=== PATIENT | male | born 1945 | race Caucasian/White ===

== ENCOUNTER → 2019-06-02 | Outpatient (CLI) | payer MEDICARE, OTHER ==
[~2019-06-02] MED LIST: AMLO5TAB9 PO
--- NOTE | 2019-06-02 12:53 | Diagnostic Imaging Report ---
INDICATION: Left lower lobe cavitary lung mass. TECHNIQUE: Serum blood glucose level at the time of injection is 90 mg/dL. Patient was administered 13.3 mCi of F-18 FDG intravenously in the right antecubital location and PET imaging was performed from the top of the skull to mid thighs. Noncontrast CT was also performed for attenuation correction and anatomic correlation. COMPARISON: No prior PET studies are available for comparison. No recent CT chest is available for comparison. Comparison is made with a prior CT chest from 02/19/2016. FINDINGS: There is symmetric activity within the brain. There is some muscular uptake within the neck which is physiologic. There is some very mild uptake involving a left axillary lymph node with SUV max of approximately 3.2. This is indeterminate. This lymph node does not appear to be pathologically enlarged. No mediastinal or hilar hypermetabolism is seen. The cavitary lesion in the superior segment of the left lower lobe does not demonstrate FDG avidity. No other pulmonary parenchymal areas of hypermetabolism are identified. Abdomen and pelvis demonstrate physiologic activity throughout the GI and tracts. No suspicious hypermetabolism is identified. IMPRESSION: 1. Cavitary left lower lobe pulmonary mass does not demonstrate FDG uptake. Continued close follow-up is recommended. There does appear to be very mild uptake involving a left axillary lymph node, indeterminate. Dictated by: Dictated on workstation # [id number]
== END ==
LOC: RAD 07:37
PROVIDERS: ATTEND Nurse Practitioner Family
DX: J44.0 Chronic obstructive pulmonary disease with (acute) lower respiratory infection (principal); J30.9 Allergic rhinitis, unspecified; R91.8 Other nonspecific abnormal finding of lung field

== ENCOUNTER → 2020-01-25 | Outpatient (CLI) | payer MEDICARE, OTHER ==
[~2020-01-25] MED LIST changes: +CATHETER FLUSH 10 ML SYR IV PRN; +HOLD METFORMIN - RECEIVED CONTRAST 20 ML VIAL IV SCH; +IOHEXOL 350 MG/ML 100 ML (OMNIPAQUE 350) VIAL IV ONE; +NS 100 ML (IVPB) BAG IV ONE
[2020-01-25 09:25] LABS: BUN/CREATININE RATIO 11; CREATININE SERUM 1.03 MG/DL (0.60-1.30); GFR ESTIMATED > 60
--- NOTE | 2020-01-25 14:50 | Diagnostic Imaging Report ---
PROCEDURE: CT chest with contrast only. TECHNIQUE: Multiple contiguous axial images were obtained through the chest after administration of intravenous contrast. Auto Exposure Controls were utilized during the CT exam to meet ALARA standards for radiation dose reduction. DATE: January 25, 2020. COMPARISON: CT chest February 19, 2016. PET/CT June 02, 2019. INDICATION: 74-year-old male, cough, dyspnea. FINDINGS: In the left lower lobe on axial image 78, there is a cavitary lesion with somewhat irregular and mildly thick calvin which measures 2.3 x 1.9 cm in axial extent. This is a new finding since the February 19, 2016 CT chest. On the prior PET/CT of June 02, 2019, this previously measured approximately 2.4 x 1.8 cm in size. Although the size of the lesion is essentially unchanged since June 02, 2019, the wall thickness and a focal area of nodularity on current axial image 77 are new findings since June 02, 2019. This is concerning for potential neoplasm. There are findings of centrilobular emphysema. There is no additional pulmonary nodule. There is no additional focal airspace consolidation. There is no pneumothorax. There is no pleural effusion. There is nonspecific opacification of proximal left lower lobe bronchi, best illustrated on axial image 91 and adjacent sequential images. There are coronary artery calcifications and additional areas of atherosclerotic disease. The heart is not enlarged. There is no pericardial effusion. The main pulmonary artery diameter is within normal limits. There is no identified pulmonary embolus. There is no identified abnormally enlarged mediastinal or axillary lymph node which meets CT size criteria for adenopathy. There is a right hilar lymph node on axial image 72 which measures 11 mm in short axis. There is no identified abnormally enlarged left hilar lymph node. There are subcentimeter short axis bilateral axillary lymph nodes. There is a 6 mm low-attenuation lesion in the left lobe of the liver on axial image 131 which is too small to characterize. There is a 4 mm low-attenuation left renal lesion on axial image 151 which is too small to characterize. There are multilevel degenerative changes of the spine. There is no identified acute bony abnormality. There is no identified bone lesion raising suspicion for bone metastasis. IMPRESSION: 1. Cavitary nodule in the left lower lobe which is new since January 2016. The size is similar to June 02, 2019; however, there is increased wall thickness of the lesion and a nodular focus which are new since June 02, 2019. This does raise concern for potential malignancy. CT-guided biopsy is recommended. 2. Right hilar lymph node measuring 11 mm in short axis which is indeterminate. 3. Nonspecific opacification of proximal left lower lobe bronchi. 4. Findings of centrilobular emphysema. Dictated by: Dictated on workstation # [id number]
== END ==
LOC: RAD 08:44
PROVIDERS: ATTEND Nurse Practitioner Family
DX: J30.9 Allergic rhinitis, unspecified (principal); J43.2 Centrilobular emphysema; R91.8 Other nonspecific abnormal finding of lung field
CPT/HCPCS: 36415; 71260; 82565; 84520

== ENCOUNTER 2020-02-08 07:25 | Outpatient (CLI) | payer MEDICARE, OTHER ==
[2020-02-08] VITALS (15 sets, daily range): BP systolic 116–170; BP diastolic 52–82
[~2020-02-08] VITALS: Ht 175.3 cm; Wt 56.8 kg
[~2020-02-08 07:25] MED LIST changes: -CATHETER FLUSH 10 ML SYR IV PRN; -HOLD METFORMIN - RECEIVED CONTRAST 20 ML VIAL IV SCH; -IOHEXOL 350 MG/ML 100 ML (OMNIPAQUE 350) VIAL IV ONE; -NS 100 ML (IVPB) BAG IV ONE
[2020-02-08 07:56] LABS: HEMOGLOBIN 14.3 G/DL (13.3-17.7); MEAN PLATELET VOLUME 9.6 FL (7.4-10.4); RED CELL DISTRIBUTION WIDTH 13.7 % (10.0-14.5)
[2020-02-08] MEDS ORDERED: NS IV 1000 ML 1,000 ML IV STA (07:58)
[2020-02-08] MEDS ORDERED: LIDOCAINE 1% INJ 20 ML 20 ML VIAL INJ ONE (08:00)
[2020-02-08] MEDS ORDERED: MIDAZOLAM 2 MG/2 ML (VERSED) VIAL IVP ONE (08:00)
[2020-02-08] MEDS ORDERED: fentaNYL INJECTION 100 MCG/2 ML AMP IVP ONE (08:00)
[2020-02-08 08:18] LABS: INR 0.9 (0.8-1.4); PROTHROMBIN TIME PATIENT 12.6 SEC (12.2-14.7)
[2020-02-08] MEDS ORDERED: FLUT1DIS26 IH (08:40)
[2020-02-08] MEDS ORDERED: LISI10TA2 PO (08:40)
[2020-02-08] MEDS ORDERED: HYDROcodone/APAP 5 MG/325 MG (LORTAB) TAB PO PRN (10:15)
--- NOTE | 2020-02-08 10:16 | Pre-Op Note & Conscious Sedat ---
Pre-Operative Progress Note H&P Reviewed The H&P was reviewed, patient examined and no changes noted. Date H&P Reviewed: Feb 08, 2020 Time H&P Reviewed: 08:00 Pre-Op Diagnosis: Left lung mass Conscious Sedation Pre-Proced Time 08:00 ASA Score 2 For ASA 3 and 4: Consider anesthesia and medical clearance. Also, for patients with a history of failed moderate sedation consider anesthesia. Airway Lungs Heart ASA score ASA 1: a normal healthy patient ASA 2: a patient with a mild systemic disease (mid diabetes, controlled hypertension, obesity ASA 3: a patient with a severe systemic disease that limits activity (angina, COPD, prior Myocardial infarction) ASA 4: a patient with an incapacitating disease that is a constant threat to life (CHF, renal failure) ASA 5: a moribund patient not expected to survive 24 hrs. (ruptured aneurysm) ASA 6: a declared brain- patient whose organs are being harvested. For emergent operations, add the letter E after the classification Mallampati Classification Grade 2 Sedation Plan Analgesia, Amnesia, Plan communicated to team members, Discussed options with patient/fam, Discussed risks with patient/fam The patient is an appropriate candidate to undergo the planned procedure, sedation, and anesthesia. The patient immediately re-assessed prior to indication. NAKIA PUGA MD Feb 08, 2020 10:16
--- NOTE | 2020-02-08 10:32 | Diagnostic Imaging Report ---
INDICATION: Left lower lobe cavitary lung mass. Patient presents for CT-guided biopsy. TECHNIQUE: All CT scans use one or more of the following dose optimizing techniques: automated exposure control, MA and/or KvP adjustment based on a patient size and exam type, or iterative reconstruction. After informed written consent was obtained from the patient, patient brought to the CT suite, placed on table in the left side down decubitus position. Axial imaging through the chest was performed to evaluate appropriate entry site. Study was performed utilizing conscious sedation with radiology nursing and constant patient monitoring. Patient was administered total of 25 mcg of fentanyl intravenously and 1 mg of Versed intravenously. Total procedure time approximately 16 minutes. A left posterior thorax was prepped and draped in usual sterile fashion. Small amount of 1% lidocaine was utilized for local anesthesia. 20-gauge coaxial Temno needle was advanced from a posterior approach and placed with its tip along the margin of the cavitary lesion left lower lobe. The tip was placed in the area of thickening and nodularity of the lesion. Three core biopsies were then obtained. The needle was removed during injection of a blood patch. Followup imaging shows no complicating features. No pneumothorax is identified. Patient tolerated the procedure well and left the department in stable condition. IMPRESSION: CT-guided core biopsy of left lower lobe cavitary lung mass, utilizing conscious sedation. Pathology results are currently pending. Dictated by: Dictated on workstation # [id number]
--- NOTE | 2020-02-08 12:07 | Diagnostic Imaging Report ---
INDICATION: Left lung mass, status post biopsy. TECHNIQUE: An expiratory portable radiograph of the chest was performed. FINDINGS: Density in the left midlung corresponding to the known lung mass is noted. There is no pneumothorax status post left lung biopsy earlier this morning. The right lung is clear. There is no effusion. IMPRESSION: No evidence of pneumothorax status post left lung biopsy. Dictated by: Dictated on workstation # [id number]
== END 2020-02-08 12:25 | disposition home or self-care (01) ==
LOC: SDC 07:25
PROVIDERS: ATTEND Nurse Practitioner Family
DX: J44.9 Chronic obstructive pulmonary disease, unspecified (principal); R91.8 Other nonspecific abnormal finding of lung field; Z72.0 Tobacco use
CPT/HCPCS: 36415; 71045; 77012; 85027; 85610; 85730; 99156; 99157

== ENCOUNTER → 2020-05-27 | Outpatient (CLI) | payer MEDICARE, OTHER ==
[~2020-05-27] MED LIST changes: +FLUT1DIS26 IH; +HOLD METFORMIN - RECEIVED CONTRAST 20 ML VIAL IV SCH; +IOHEXOL 350 MG/ML 100 ML (OMNIPAQUE 350) VIAL IV ONE; +LISI10TA2 PO; +NS 100 ML (IVPB) BAG IV ONE
[2020-05-27 14:31] LABS: BUN/CREATININE RATIO 10; CREATININE SERUM 0.96 MG/DL (0.60-1.30); GFR ESTIMATED > 60
--- NOTE | 2020-05-27 15:14 | Diagnostic Imaging Report ---
PROCEDURE: CT chest with contrast only. TECHNIQUE: Multiple contiguous axial images were obtained through the chest after administration of intravenous contrast. Auto Exposure Controls were utilized during the CT exam to meet ALARA standards for radiation dose reduction. INDICATION: Dyspnea. COMPARISON: January 25, 2020 and February 19, 2016. FINDINGS: Mildly prominent right hilar lymph node is again identified measuring 1.1 cm in short dimension, stable from the prior examination, and not definitively changed since 2016. No new adenopathy. Advanced vascular calcifications. The ascending thoracic aorta is at the upper limits of normal in size measuring just under 4 cm in maximal dimension. Advanced coronary artery calcifications. The heart is within normal limits in size. No significant pericardial effusion. No significant pleural effusion. Advanced centrilobular emphysematous changes are again noted. No pneumothorax. Previously noted irregular cavitary lesion within the superior aspect of the right lower lobe is again identified. This appears to have increased in size since the prior examination measuring 2.6 x 2.1 x 2.6 cm. This demonstrates irregular and spiculated margins. The cavitary component has decreased since the prior examination with a soft tissue component along the anterolateral aspect of this density having increased in size. 4 mm right upper lobe pulmonary nodule, axial image 33, is stable since the prior examination. No new pulmonary nodule. Increasing opacification filling defects within multiple right lower lobe bronchi. Advanced vascular calcifications within the partially visualized upper abdomen. Tiny 5 mm hypodensity within the anterior aspect of the left hepatic lobe is stable and too small to completely characterize. The partially visualized upper abdomen is unremarkable. Scattered osseous degenerative changes without acute osseous abnormality. IMPRESSION: Previously noted and previously biopsied irregular pulmonary nodule within the left lower lobe has increased in size and solid component when compared to the prior exam. This may simply relate to post biopsy changes, though persisting neoplasm not completely excluded. Therefore, short interval follow-up CT of the chest in one to two months is recommended for further evaluation. Alternatively, re-biopsy could be considered. Advanced background emphysematous changes. Stable mildly prominent right hilar lymph node, unchanged since 2016, consistent with benign etiology. Slight worsening of filling defects within right lower lobe bronchi, favored related to mucous plugging. Severe vascular calcifications. Dictated by: Dictated on workstation # [id number]
== END ==
LOC: RAD 15:15
PROVIDERS: ATTEND Nurse Practitioner Family
DX: J43.2 Centrilobular emphysema (principal); I70.8 Atherosclerosis of other arteries; R91.1 Solitary pulmonary nodule; R59.0 Localized enlarged lymph nodes; Z98.890 Other specified postprocedural states; Z72.0 Tobacco use
CPT/HCPCS: 36415; 71260; 82565; 84520

== ENCOUNTER → 2020-05-31 | Outpatient (CLI) | payer MEDICARE, OTHER ==
[~2020-05-31] MED LIST changes: -HOLD METFORMIN - RECEIVED CONTRAST 20 ML VIAL IV SCH; -IOHEXOL 350 MG/ML 100 ML (OMNIPAQUE 350) VIAL IV ONE; -NS 100 ML (IVPB) BAG IV ONE
--- NOTE | 2020-05-31 15:28 | Diagnostic Imaging Report ---
INDICATION: Left lower lobe lung mass. TECHNIQUE: Serum blood glucose level at the time of injection was 99 mg/dL. Patient was administered 13.3 mCi F-18 FDG intravenously in the right antecubital location and PET imaging was performed from the top of the skull to mid thighs. Noncontrast CT was also performed for attenuation correction and anatomic correlation. COMPARISON: Correlation is made with prior PET/CT study from 06/02/2019 as well as prior chest CTs from 05/27/2020 and 01/25/2020. FINDINGS: There is symmetric activity throughout the brain. Soft tissues of the neck are unremarkable. No mediastinal or hilar hypermetabolism is identified. The previously noted partially cavitary mass in the superior segment of left lower lobe is hypermetabolic on today's exam. This demonstrates an SUV max of 8.8. Lesion is approximately 2 cm in size. Solid component does appear to be increased when compared with CT dating back to 01/25/2020. No additional pulmonary parenchymal areas of hypermetabolism are identified. The abdomen and pelvis demonstrate physiologic activity throughout the GI and tracts. No suspicious hypermetabolism is detected. IMPRESSION: Partially cavitary mass in the left lower lobe is hypermetabolic on today's exam. This is concerning for a lung neoplasm. No hilar or mediastinal hypermetabolism is detected. Dictated by: Dictated on workstation # [id number]
== END ==
LOC: RAD 11:15
PROVIDERS: ATTEND Internal Medicine Critical Care Medicine
DX: J44.9 Chronic obstructive pulmonary disease, unspecified (principal); R91.8 Other nonspecific abnormal finding of lung field; Z72.0 Tobacco use
CPT/HCPCS: 78815; A9552

== ENCOUNTER → 2020-06-07 | Outpatient (CLI) | payer MEDICARE, OTHER ==
[~2020-06-07] MED LIST changes: +RT-ALBUTEROL SULF 2.5 MG/3 ML PRE-MIX VIAL INH ONE
== END ==
LOC: RT 07:45
PROVIDERS: ATTEND Internal Medicine Critical Care Medicine
DX: J44.9 Chronic obstructive pulmonary disease, unspecified (principal); R91.8 Other nonspecific abnormal finding of lung field; Z72.0 Tobacco use
CPT/HCPCS: 94060; 94726; 94729

== ENCOUNTER 2020-06-17 08:06 | Outpatient (CLI) | payer MEDICARE ==
[2020-06-17] VITALS (12 sets, daily range): BP systolic 124–161; BP diastolic 55–83
[~2020-06-17] VITALS: Ht 167.7 cm; Wt 54.3 kg
[~2020-06-17 08:06] MED LIST changes: -RT-ALBUTEROL SULF 2.5 MG/3 ML PRE-MIX VIAL INH ONE
[2020-06-17 08:46] LABS: HEMOGLOBIN 14.1 g/dL (13.3-17.7); MEAN PLATELET VOLUME 9.3 fL (9.0-12.2); WHITE BLOOD COUNT 4.7 10^3/uL (4.3-11.0)
[2020-06-17] MEDS ORDERED: NS IV 1000 ML 1,000 ML IV STA (08:50)
[2020-06-17] MEDS ORDERED: VITAMIN B-12 (08:56)
[2020-06-17] MEDS ORDERED: RT-ALBUINH IH (08:56)
[2020-06-17 08:58] LABS: INR 0.9 (0.8-1.4); PROTHROMBIN TIME PATIENT 12.6 SEC (12.2-14.7)
[2020-06-17] MEDS ORDERED: fentaNYL INJECTION 100 MCG/2 ML AMP IVP ONE (09:00)
[2020-06-17] MEDS ORDERED: LIDOCAINE 1% INJ 20 ML 20 ML VIAL INJ ONE (09:00)
[2020-06-17] MEDS ORDERED: MIDAZOLAM 2 MG/2 ML (VERSED) VIAL IVP ONE (09:00)
[2020-06-17] MEDS ORDERED: HYDROcodone/APAP 5 MG/325 MG (LORTAB) TAB PO PRN (10:15)
--- NOTE | 2020-06-17 11:06 | NUR ---
PATIENT ARRIVED VIA CART AND RECEIVED BEDSIDE REPORT FROM [facility]. PATIENT A/O X3 WITH NO COMPLAINTS OF PAIN. DRESSING ON POSTERIOR LEFT MID BACK HAS OCCLUSIVE DRESSING WITH VASELINE GAUZE THAT'S C/D/I. BASIM INFORMED XRAY PRIOR TO DISCHARGE. WILL CONTINUE TO MONITOR PATIENT.
--- NOTE | 2020-06-17 11:18 | Pre-Op Note & Conscious Sedat ---
Pre-Operative Progress Note H&P Reviewed The H&P was reviewed, patient examined and no changes noted. Date H&P Reviewed: Jun 17, 2020 Time H&P Reviewed: 08:00 Pre-Op Diagnosis: Left lung mass Conscious Sedation Pre-Proced Time 08:00 ASA Score 2 For ASA 3 and 4: Consider anesthesia and medical clearance. Also, for patients with a history of failed moderate sedation consider anesthesia. Airway Lungs Heart ASA score ASA 1: a normal healthy patient ASA 2: a patient with a mild systemic disease (mid diabetes, controlled hypertension, obesity ASA 3: a patient with a severe systemic disease that limits activity (angina, COPD, prior Myocardial infarction) ASA 4: a patient with an incapacitating disease that is a constant threat to life (CHF, renal failure) ASA 5: a moribund patient not expected to survive 24 hrs. (ruptured aneurysm) ASA 6: a declared brain- patient whose organs are being harvested. For emergent operations, add the letter E after the classification Mallampati Classification Grade 2 Sedation Plan Analgesia, Amnesia, Plan communicated to team members, Discussed options with patient/fam, Discussed risks with patient/fam The patient is an appropriate candidate to undergo the planned procedure, sedation, and anesthesia. The patient immediately re-assessed prior to indication. NAKIA PUGA MD Jun 17, 2020 11:18
--- NOTE | 2020-06-17 11:35 | Diagnostic Imaging Report ---
INDICATION: Left lung biopsy. TIME OF EXAM: 11:27 AM Expiratory radiograph of the chest was performed. Known left lower lobe lesion mid left lung is again noted. No pneumothorax is identified, status post biopsy. No effusion is seen. IMPRESSION: No evidence of pneumothorax, status post left lung biopsy. Dictated by: Dictated on workstation # [id number]
--- NOTE | 2020-06-17 11:53 | Diagnostic Imaging Report ---
INDICATION: Left lung mass. Patient presents for CT-guided biopsy. TECHNIQUE: All CT scans use one or more of the following dose optimizing techniques: automated exposure control, MA and/or KvP adjustment based on patient size and exam type or iterative reconstruction. FINDINGS: Patient was brought to the CT suite, placed on table in [id number] decubitus position. Axial imaging through the chest was performed to evaluate appropriate entry site. Procedure was performed utilizing conscious sedation with radiology nursing and constant patient monitoring. Patient was administered a total of 50 mcg of fentanyl intravenously and 0.5 mg of Versed intravenously. The left lower posterior thorax was prepped and draped in the usual sterile fashion. Small amount of 1% lidocaine was utilized for local anesthesia. 20-gauge coaxial Temno needle was advanced and placed with its tip along the margin of the spiculated lesion in the left lower lobe. A total of three core biopsies were obtained. A blood patch was injected during needle removal. Hemostasis was obtained using manual compression. Follow-up imaging demonstrates minimal hemorrhage at the biopsy site. No pneumothorax is detected. Patient tolerated the procedure well and left the department in stable condition. IMPRESSION: Successful CT-guided left lower lobe lung mass biopsy utilizing conscious sedation. Pathology results are currently pending. Dictated by: Dictated on workstation # [id number]
== END 2020-06-17 12:15 | disposition home or self-care (01) ==
LOC: SDC 08:06
PROVIDERS: ATTEND Nurse Practitioner Family
DX: J44.9 Chronic obstructive pulmonary disease, unspecified (principal); Z72.0 Tobacco use
CPT/HCPCS: 36415; 71045; 77012; 85027; 85610; 85730; 99156

== ENCOUNTER → 2020-09-26 | Outpatient (CLI) | payer MEDICARE ==
[~2020-09-26] MED LIST changes: +AMLO-250 PO; -AMLO5TAB9 PO; +CATHETER FLUSH 10 ML SYR IV PRN; +HOLD METFORMIN - RECEIVED CONTRAST 20 ML VIAL IV SCH; +IOHEXOL 350 MG/ML 100 ML (OMNIPAQUE 350) VIAL IV ONE; +NS 100 ML (IVPB) BAG IV ONE; +RT-ALBUINH IH; +VITAMIN B-12
[2020-09-26 14:06] LABS: BUN/CREATININE RATIO 17; CREATININE SERUM 0.93 MG/DL (0.60-1.30); GFR ESTIMATED > 60
--- NOTE | 2020-09-26 15:36 | Diagnostic Imaging Report ---
PROCEDURE: CT chest with contrast only. TECHNIQUE: Multiple contiguous axial images were obtained through the chest after administration of intravenous contrast. Auto Exposure Controls were utilized during the CT exam to meet ALARA standards for radiation dose reduction. INDICATION: COPD, pulmonary nodule COMPARISON with chest CT 05/27/2020 FINDINGS: Irregular spiculated soft tissue density mass in the patient's left lower lobe is increased in size from prior, is presumed malignant. Correlate with previous biopsy results. This is 3.6 cm AP x 2.7 cm transverse; previous dimensions were 2.2 x 1.7 cm. Background COPD noted. No new lung mass identified. No pathological-appearing thoracic lymph nodes. No effusion or pneumothorax. There is no suspicious lytic or sclerotic bony lesion. The visualized upper abdomen showed no adrenal mass or appreciable lymphadenopathy. IMPRESSION: Very suspicious solid irregular spiculated mass, left lower lobe, increased in size from prior, presumed carcinoma. No appreciable metastatic disease. Background COPD, chronic. Dictated by: Dictated on workstation # [id number]
== END ==
LOC: RAD 14:45
PROVIDERS: ATTEND Nurse Practitioner Family
DX: J44.9 Chronic obstructive pulmonary disease, unspecified (principal); R91.8 Other nonspecific abnormal finding of lung field; Z98.890 Other specified postprocedural states
CPT/HCPCS: 36415; 71260; 82565; 84520

== ENCOUNTER → 2020-10-06 | Outpatient (CLI) | payer MEDICARE ==
[~2020-10-06] VITALS: Ht 173 cm; Wt 58.5 kg
[2020-10-06] VITALS (12 sets, daily range): BP systolic 100–139; BP diastolic 55–75
[~2020-10-06] MED LIST changes: +APIX5TAB PO; -HOLD METFORMIN - RECEIVED CONTRAST 20 ML VIAL IV SCH; -IOHEXOL 350 MG/ML 100 ML (OMNIPAQUE 350) VIAL IV ONE; +LIDOCAINE 1% INJ 20 ML 20 ML VIAL INJ ONE; -LISI10TA2 PO; +LISI10TA25 PO; +METO-333 PO; +MIDAZOLAM 2 MG/2 ML (VERSED) VIAL IVP ONE; +MONT10TA32 PO; -NS 100 ML (IVPB) BAG IV ONE; +NS IV 1000 ML 1,000 ML IV STA; +fentaNYL INJECTION 100 MCG/2 ML AMP IVP ONE
[2020-10-06 07:30] LABS: BASOPHILS % (AUTO) 1 % (0-10); EOSINOPHILS # (AUTO) 0.1 10^3/uL (0.0-0.3); EOSINOPHILS % (AUTO) 1 % (0-10); HEMATOCRIT 40 % (40-54); HEMOGLOBIN 13.7 g/dL (13.3-17.7); LYMPHOCYTES # (AUTO) 1.3 10^3/uL (1.0-4.0); LYMPHOCYTES % (AUTO) 29 % (12-44); MEAN CORPUSCULAR HEMOGLOBIN 35 pg (25-34); MEAN CORPUSCULAR HGB CONC 34 g/dL (32-36); MEAN CORPUSCULAR VOLUME 104 fL (80-99); MEAN PLATELET VOLUME 9.8 fL (9.0-12.2); MONOCYTES # (AUTO) 0.6 10^3/uL (0.0-1.0); MONOCYTES % (AUTO) 14 % (0-12); NEUTROPHILS # (AUTO) 2.4 10^3/uL (1.8-7.8); NEUTROPHILS % (AUTO) 55 % (42-75); PLATELET COUNT 183 10^3/uL (130-400); WHITE BLOOD COUNT 4.4 10^3/uL (4.3-11.0)
[2020-10-06 07:39] LABS: SMEAR SCAN COMMENT YES
[2020-10-06 07:40] LABS: PROTHROMBIN TIME PATIENT 13.2 SEC (12.2-14.7)
--- NOTE | 2020-10-06 10:48 | Diagnostic Imaging Report ---
Expiration chest at 1043 hours. INDICATION: Post lung biopsy. FINDINGS: The patient underwent a CT-guided biopsy of the left lung earlier today. On this study, vague area of increased density in the left perihilar region seen on the prior exam of 06/17/2020 is again evident and does seem slightly larger. There is no sign of a pneumothorax on the left. The right lung is relatively clear. The heart is stable. The mediastinum is not widened. The osseous structures are intact. IMPRESSION: 1. There is no evidence for a pneumothorax on the left following the CT-guided biopsy of the left lung. 2. The left lung lesion does seem somewhat larger than on the prior exam. Dictated by: Dictated on workstation # [id number]
--- NOTE | 2020-10-06 11:22 | Pre-Op Note & Conscious Sedat ---
Pre-Operative Progress Note H&P Reviewed The H&P was reviewed, patient examined and no changes noted. Date H&P Reviewed: Oct 06, 2020 Time H&P Reviewed: 08:00 Pre-Op Diagnosis: lung mass Conscious Sedation Pre-Proced Time 08:00 ASA Score 2 For ASA 3 and 4: Consider anesthesia and medical clearance. Also, for patients with a history of failed moderate sedation consider anesthesia. Airway Lungs Heart ASA score ASA 1: a normal healthy patient ASA 2: a patient with a mild systemic disease (mid diabetes, controlled hypertension, obesity ASA 3: a patient with a severe systemic disease that limits activity (angina, COPD, prior Myocardial infarction) ASA 4: a patient with an incapacitating disease that is a constant threat to life (CHF, renal failure) ASA 5: a moribund patient not expected to survive 24 hrs. (ruptured aneurysm) ASA 6: a declared brain- patient whose organs are being harvested. For emergent operations, add the letter E after the classification Mallampati Classification Grade 2 Sedation Plan Analgesia, Amnesia, Plan communicated to team members, Discussed options with patient/fam, Discussed risks with patient/fam The patient is an appropriate candidate to undergo the planned procedure, sedation, and anesthesia. The patient immediately re-assessed prior to indication. NAKIA PUGA MD Oct 06, 2020 11:22
--- NOTE | 2020-10-06 12:36 | Diagnostic Imaging Report ---
INDICATION: Left lung mass. TECHNIQUE: All CT scans use one or more of the following dose optimizing techniques: automated exposure control, MA and/or KvP adjustment based on patient size and exam type or iterative reconstruction. The patient was brought to CT suite, placed on the table in the [id number] decubitus position. Axial imaging through the chest was performed to evaluate appropriate entry site. The procedure was performed utilizing conscious sedation with radiology nursing and constant patient monitoring. The patient was administered a total of 50 mcg of fentanyl intravenously and 0.5 mg of Versed intravenously. Total procedure time was 10 minutes. The left posterior thorax was prepped and draped in the usual sterile fashion. A small amount of 1% lidocaine was utilized for local anesthesia. A 20-gauge coaxial Temno needle was advanced and placed with its tip along the margin of the spiculated mass in the left lower lobe. Multiple core biopsies were obtained. The needle was then repositioned to a new area along the margin of the mass and additional core biopsies were obtained. A blood patch was injected during needle removal. Follow-up imaging demonstrates a small amount of perilesional hemorrhage. There is a very small pneumothorax present. The patient tolerated the procedure well and left the department in stable condition. IMPRESSION: 1. Successful CT-guided biopsy of left lower lobe mass, utilizing conscious sedation. Pathology results are currently pending. Patient does have a small postprocedure pneumothorax which will be followed with chest radiograph in 2 hours. Dictated on workstation # [id number]
== END ==
LOC: SDC 06:58
PROVIDERS: ATTEND Nurse Practitioner Family
DX: R91.8 Other nonspecific abnormal finding of lung field (principal); J95.811 Postprocedural pneumothorax
CPT/HCPCS: 36415; 71045; 77012; 85025; 85610; 85730; 99156

== ENCOUNTER → 2020-11-01 | Outpatient (CLI) | payer MEDICARE ==
[~2020-11-01] MED LIST changes: -CATHETER FLUSH 10 ML SYR IV PRN; -LIDOCAINE 1% INJ 20 ML 20 ML VIAL INJ ONE; -MIDAZOLAM 2 MG/2 ML (VERSED) VIAL IVP ONE; -NS IV 1000 ML 1,000 ML IV STA; -fentaNYL INJECTION 100 MCG/2 ML AMP IVP ONE
--- NOTE | 2020-11-01 15:43 | Diagnostic Imaging Report ---
INDICATION: Malignant neoplasm of the left lung. This study is performed for initial staging. TECHNIQUE: The serum blood glucose level at the time of injection was 90 mg/dL. The patient was administered 14.6 mCi of F-18 FDG intravenously in the left antecubital location and PET imaging was performed from the top of the skull to the mid thighs. A noncontrast CT was also performed for attenuation, correction, and anatomic correlation. COMPARISON: Prior PET/CT study from 05/31/2020. FINDINGS: There is symmetric activity throughout the brain. The soft tissues of the neck are unremarkable. There is a hypermetabolic lesion involving the left lamina of approximate T1. The previously noted mass in the left lower lobe now measures 3.2 cm compared with 3.0 cm when compared with the CT chest from 09/26/2019. This is hypermetabolic with an SUV max of approximately 12. There is a new hypermetabolic nodule in the left upper lobe measuring 9 mm with an SUV max of 4.6. No other definite pulmonary parenchymal hypermetabolism is seen. No mediastinal or hilar hypermetabolism is identified. There is a hypermetabolic lesion within the T10 vertebral body on the right in the region of the pedicle. There are numerous hypermetabolic lesions throughout the right and left lobes of the liver, consistent with hepatic metastatic disease. There is hypermetabolism involving the left adrenal gland, consistent with an adrenal metastasis. There is also hypermetabolism involving the left lateral 11th rib. A large hypermetabolic lesion is seen involving the left iliac bone. No other significant abnormality is seen. IMPRESSION: Abnormal PET CT study demonstrating a hypermetabolic spiculated left lower lobe mass, consistent with the known lung malignancy. There is a new subcentimeter nodule in the left upper lobe which shows hypermetabolism, consistent with a metastatic lesion. There are now numerous osseous metastases as well as hepatic and left adrenal metastases. Dictated by: Dictated on workstation # [id number]
== END ==
LOC: RAD 11:32
PROVIDERS: ATTEND Internal Medicine Hematology & Oncology
DX: C34.92 Malignant neoplasm of unspecified part of left bronchus or lung (principal)
CPT/HCPCS: 78815; A9552

== ENCOUNTER 2020-11-07 12:34 | Outpatient (RCR) | payer MEDICARE ==
[2020-10-24 15:04] LABS: BASOPHILS % (AUTO) 1 % (0-10); EOSINOPHILS # (AUTO) 0.1 10^3/uL (0.0-0.3); EOSINOPHILS % (AUTO) 2 % (0-10); HEMATOCRIT 40 % (40-54); HEMOGLOBIN 13.3 g/dL (13.3-17.7); LYMPHOCYTES # (AUTO) 1.6 10^3/uL (1.0-4.0); LYMPHOCYTES % (AUTO) 34 % (12-44); MEAN CORPUSCULAR HEMOGLOBIN 35 pg (25-34); MEAN CORPUSCULAR HGB CONC 34 g/dL (32-36); MEAN CORPUSCULAR VOLUME 104 fL (80-99); MEAN PLATELET VOLUME 9.5 fL (9.0-12.2); MONOCYTES # (AUTO) 0.7 10^3/uL (0.0-1.0); MONOCYTES % (AUTO) 14 % (0-12); NEUTROPHILS # (AUTO) 2.3 10^3/uL (1.8-7.8); NEUTROPHILS % (AUTO) 49 % (42-75); PLATELET COUNT 182 10^3/uL (130-400); WHITE BLOOD COUNT 4.7 10^3/uL (4.3-11.0)
[2020-10-24 15:35] LABS: ALANINE AMINOTRANSFERASE 13 U/L (0-55); ALKALINE PHOSPHATASE 90 U/L (40-136); BILIRUBIN,TOTAL 0.3 MG/DL (0.1-1.0); BUN/CREATININE RATIO 16; CALCIUM 8.9 MG/DL (8.5-10.1); CARBON DIOXIDE 21 MMOL/L (21-32); CHLORIDE 103 MMOL/L (98-107); CREATININE SERUM 0.92 MG/DL (0.60-1.30); GFR ESTIMATED > 60; GLUCOSE 96 MG/DL (70-105); POTASSIUM 4.1 MMOL/L (3.6-5.0); SODIUM 135 MMOL/L (135-145); TOTAL PROTEIN 6.8 GM/DL (6.4-8.2)
== END 2021-01-22 | disposition home or self-care (01) ==
LOC: ONC 12:34
PROVIDERS: ATTEND Internal Medicine Hematology & Oncology
DX: C34.92 Malignant neoplasm of unspecified part of left bronchus or lung (principal); I10 Essential (primary) hypertension; E11.9 Type 2 diabetes mellitus without complications; J43.9 Emphysema, unspecified; I48.91 Unspecified atrial fibrillation; F17.210 Nicotine dependence, cigarettes, uncomplicated
CPT/HCPCS: 80053; 82378; 85025; G0463; 99213; 99214